=== PATIENT | male | born 1985 | race Caucasian/White ===

== ENCOUNTER 2020-12-02 15:39 | Outpatient (CLI) | payer BC, SELFPAY ==
[2020-12-02 16:19] LABS: Hematocrit 42.2 % (42.0-52.0); Hemoglobin 14.7 g/dL (14.0-18.0); Mean Corpuscular HGB Conc 34.8 g/dl (32-36); Mean Corpuscular Hemoglobin 33.3 pg (26-34); Mean Corpuscular Volume 95.5 fl (80-100); Mean Platelet Volume 10.1 fl (7.4-10.4); Platelet Count Result 252 k/mm3 (150-375); Red Blood Count 4.42 M/mm3 (4.6-6.20); White Blood Count 7.8 K/mm3 (4.5-10.0)
[2020-12-02 17:01] LABS: Alanine Aminotransferase 24 U/L (4-50); Albumin Level 4.4 g/dL (3.5-5.1); Alkaline Phosphatase 68 U/L (38-126); Anion Gap 6 mmol/L (8-16); Aspartate Amino Transferase 32 U/L (17-59); Bilirubin,Total 0.7 mg/dL (0.2-1.3); Blood Urea Nitrogen 13 mg/dL (9-20); Calcium 9.7 mg/dL (8.4-10.2); Carbon Dioxide 29 mmol/L (22-30); Chloride 102 mmol/L (98-107); Estimated Glomerular Filt Rate > 60; Glucose 92 mg/dL (75-110); Lipase 87 U/L (23-300); Potassium 4.2 mmol/L (3.4-5.0); Sodium 137 mmol/L (137-145)
== END 2020-12-02 15:40 | disposition home or self-care (01) ==
LOC: ANHLAB 15:42
PROVIDERS: PCP Family Medicine; Visit Provider Physician Assistant
DX: R10.9 Unspecified abdominal pain (principal)
CPT/HCPCS: 36415; 80053; 83690; 85027

== ENCOUNTER 2021-05-14 19:05 | Emergency (ER) | payer BC, SELFPAY ==
[2021-05-14 19:12] VITALS: BP 122/69; PULSE 89; RESP 16; TEMP 36.6; O2SAT 99
--- NOTE | 2021-05-14 19:17 | ED.SKABFB ---
HPI - Skin/Abscess/Foreign Bdy General Chief complaint: Skin/Abscess/Foreign Body Stated complaint: poison rae History of Present Illness HPI narrative: This is a 35 year old male that was out in [place] on [place] patient states that his symptoms did not start to get worse until this weekend Wednesday he really noticed it and he was been itching. Patient states that now spots are working the way up his body patient denies taking anything for his symptoms Related Data Allergies Allergy/AdvReac Type Severity Reaction Status Date / Time poison rae extract Allergy Unknown Swelling Verified 12/04/20 13:21 Review of Systems Review of Systems: Narrative: CONSTITUTIONAL: Denies fever, chills, or sweats. EYES: Denies visual changes, redness, or discharge. ENT: Denies rhinorrhea, congestion, sore throat, or otalgia. CARDIOVASCULAR:Denies chest pain, palpitations, or edema. RESPIRATORY: Denies cough or dyspnea. GASTROINTESTINAL: Denies abdominal pain, nausea, vomiting, or diarrhea. GENITOURINARY: Denies dysuria or hematuria. SKIN: Reports rash or itching. MUSCULOSKELETAL:Denies back pain, joint pain, or myalgia. NEUROLOGIC: Denies headache, numbness, or weakness. PSYCHIATRIC:Denies anxiety or depression Therapy [facility] Past Medical History Medical History (Updated 05/14/21 @ 19:18 by Rina Garcia NP) No active medical problems Surgical History Surgical History No significant past surgical history Family History Family History Other Adopted Social History Social History (Updated 12/04/20 @ 13:22 by Cathy Partida CMA) Smoking packs per day: 1 Smoking cigarettes per day: 20.0 Years smoked: 19 Smoking pack-years: 19.00 Smoking status: Current every day smoker Tobacco type: cigarettes Second hand tobacco smoke exposure: Yes Alcohol intake: current Drinks per week: 60 Alcohol use details: drinks beer Substance use: never 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 Please see nursing chart for further information. There is no relevant family history pertinent to the presenting complaint. Exam Narrative: Exam Narrative: GENERAL:Well-appearing, well-nourished, and in no acute distress. HEAD:Normocephalic, atraumatic. EYES: PERRLA and EOMI. ENT: Nares clear, no rhinorrhea or epistaxis. Mucous membranes moist. NECK: Supple. CHEST: Clear to auscultation. No respiratory distress. HEART: Regular rate and rhythm. No murmur heard. Normal peripheral pulses. ABDOMEN: Soft, nontender, nondistended, normal active bowel sounds. EXTREMITIES: Normal range of motion. No edema. SKIN: Warm, dry, no small pinpoint red erythema rash bilateral legs and some. NEURO: No focal deficits. Alert and oriented x3. Course Vital Signs Vital signs: Vital Signs Temperature 97.9 F 05/14/21 19:12 Pulse Rate 89 05/14/21 19:12 Respiratory Rate 16 05/14/21 19:12 Blood Pressure 122/69 05/14/21 19:12 Pulse Oximetry 99 05/14/21 19:12 Temperature 97.9 F 05/14/21 19:12 Pulse Rate 89 05/14/21 19:12 Respiratory Rate 16 05/14/21 19:12 Blood Pressure 122/69 05/14/21 19:12 Pulse Oximetry 99 05/14/21 19:12 MDM - Skin/Abscess/Foreign Bdy Differential Diagnosis Differential diagnosis: Likely abscess of skin or subcutaneous tissue, urticaria, eczema, insect bites, impetigo and contact dermatitis Discharge Plan Discharge Clinical Impression: Allergic contact dermatitis due to urushiol from poison sumac Patient Disposition: Home, Self-Care Condition: Stable Instructions: Antibiotic Form, Contact Dermatitis (DC), Poison Rae (ED) Additional Instructions: Use skin creams/lotion, such as those containing calamine or pramoxine to re
== END 2021-05-14 19:26 | disposition home or self-care (01) ==
PROVIDERS: Emergency Provider Nurse Practitioner Family; PCP Family Medicine
DX: L23.7 Allergic contact dermatitis due to plants, except food (principal); F17.210 Nicotine dependence, cigarettes, uncomplicated
CPT/HCPCS: 99213; G0463

== ENCOUNTER → 2021-11-05 09:00 | Outpatient (CLI) | payer BC, SELFPAY ==
[2021-11-05 13:46] LABS: SARS-CoV-2 RNA PCR Positive
[2021-11-05 15:20] LABS: Influenza A QL RT-PCR Negative (Negative); Influenza B QL RT-PCR Negative (Negative)
== END ==
PROVIDERS: PCP Family Medicine; Visit Provider Physician Assistant
DX: U07.1 COVID-19 (principal)
CPT/HCPCS: 87502; C9803; U0003; U0005

== ENCOUNTER 2021-11-12 01:00 | Emergency (ER) | payer BC, SELFPAY ==
[2021-11-12 01:09] VITALS: BP 126/84; PULSE 93; RESP 18; TEMP 36.2; O2SAT 97
--- NOTE | 2021-11-12 04:43 | PC.NURSE ---
Called to room, no answer.
--- NOTE | 2021-11-12 04:44 | PC.NURSE ---
Pt was seen leaving earlier per this RN and had not returned. Bathroom checked, foyer and area immediately out of doors checked and pt does not appear to have returned.
== END 2021-11-12 04:45 | disposition left against medical advice (07) ==
LOC: ANHED 05:36
PROVIDERS: PCP Family Medicine
DX: R50.9 Fever, unspecified (principal)
CPT/HCPCS: 99199

== ENCOUNTER 2021-11-18 12:24 | Outpatient (CLI) | payer BC, SELFPAY ==
--- NOTE | ~2021-11-18 | XR_ITS ---
EXAMINATION: XR chest 2V EXAM DATE: 11/18/2021 12:39 INDICATION: J22 - Unspecified acute lower respiratory infection. TECHNIQUE: Frontal and lateral projections of the chest obtained and reviewed. There is no prior agustin dy for comparison. FINDINGS: The lungs are clear. There are no pleural effusions. The cardiomediastinal silhouette is within normal limits. There is no pneumothorax suspected. The bones and soft tissues are unremarkab le. IMPRESSION: No acute cardiopulmonary findings. Reviewed, dictated and finalized at location A. RATORY IMMUNOLOGIST
== END 2021-11-18 12:25 ==
PROVIDERS: PCP Family Medicine; Visit Provider Physician Assistant
DX: J22 Unspecified acute lower respiratory infection (principal)
CPT/HCPCS: 71046

== ENCOUNTER 2022-02-15 08:03 | Emergency (ER) | payer BC, SELFPAY ==
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
[2022-02-15 08:13] VITALS: BP 131/78; PULSE 87; RESP 16; TEMP 36.6; O2SAT 100
[2022-02-15] MEDS: KETOROLAC (*BKC) 60 MG/2 ML VIAL IM (08:50)
== END 2022-02-15 08:55 | disposition home or self-care (01) ==
PROVIDERS: Emergency Provider Nurse Practitioner Family; PCP Family Medicine
DX: S20.212A Contusion of left front wall of thorax, initial encounter (principal); V86.05XA Driver of 3- or 4- wheeled all-terrain vehicle (ATV) injured in traffic accident, initial encounter; F17.210 Nicotine dependence, cigarettes, uncomplicated
CPT/HCPCS: 71101; 96372; 99213; G0463; J1885

== ENCOUNTER 2022-04-26 08:46 | Emergency (ER) | payer BC, SELFPAY ==
[2022-04-26 08:52] VITALS: BP 124/77; PULSE 76; RESP 16; TEMP 36.9; O2SAT 99
--- NOTE | 2022-04-26 08:58 | ED.SKABFB ---
HPI - Skin/Abscess/Foreign Bdy General Chief complaint: Skin/Abscess/Foreign Body Stated complaint: poison kvng Time Seen by Provider: 04/26/22 08:59 Source: patient, RN notes reviewed and old records reviewed Mode of arrival: ambulatory Limitations: no limitations History of Present Illness HPI narrative: 36-year-old male presents to the [facility] with rash to his bilateral arms, lower back, hands and genital area. Patient states he has had the rash for about 5 days started after he was pulling weeds. No treatment prior to arrival. Has been taking cool baths. MD complaint: rash Onset (ago): day(s) (5) Related Data Allergies Allergy/AdvReac Type Severity Reaction Status Date / Time poison kvng extract Allergy Unknown Swelling Verified 04/26/22 09:33 Review of Systems Review of Systems: All systems reviewed & are unremarkable except as noted in HPI and below Constitutional: Constitutional: Reports no additional constitutional complaints, Denies chills, Denies fever(s), Denies headache(s) and Denies weakness Eyes: Eyes: Reports no additional eye complaints and Denies change in vision ENT: Reports system reviewed and no additional complaints, except as documented, Denies dysphagia, Denies dizziness, Denies headache(s), Denies nasal congestion and Denies sore throat Cardiovascular: Cardiovascular: Reports no additional cardiovascular complaints, Denies chest pain, Denies syncope and Denies dyspnea Respiratory: Respiratory: Reports no additional respiratory complaints, Denies chest congestion, Denies cough, Denies dyspnea and Denies wheezing Gastrointestinal: Gastrointestinal: Reports no additional gastrointestinal complaints Musculoskeletal: Musculoskeletal: Reports no additional musculoskeletal complaints and Denies numbness Integumentary/Breasts: Skin/Breast: Reports as per HPI and Reports rash Neurologic: Reports system reviewed and no additional complaints, except as documented, Denies dizziness, Denies syncope, Denies headache(s), Denies focal weakness, Denies numbness and Denies weakness Psychiatric: Psychiatric: Reports no additional psychiatric complaints Allergic/Immunologic: Allergic/Immunologic: Reports no additional allergic/immunologic complaints and Denies wheezing PMFSH Past Medical History Medical History (Updated 04/26/22 @ 09:08 by Beatriz Benton APRN) No active medical problems Surgical History Surgical History No significant past surgical history Family History Family History Other Adopted Social History Social History Smoking packs per day: 1 Smoking cigarettes per day: 20.0 Years smoked: 19 Smoking pack-years: 19.00 Smoking status: Current every day smoker Tobacco type: cigarettes Second hand tobacco smoke exposure: Yes Alcohol intake: current Drinks per week: 60 Alcohol use details: drinks beer Substance use: never 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 There is no relevant family history pertinent to the patient complaint. Exam Const: General: healthy appearing, no acute distress and alert Nutritional Appearance: well nourished Orientation/consciousness: patient oriented x3 Limitations: no limitations HENMT: Head: normal to inspection Ears: external ears normal Eyes: Pupils: Equal, round and reactive pupils present Neck: Neck: normal visual inspection, no lymphadenopathy and no meningeal signs Chest: Chest palpation & inspection: normal inspection of the chest Resp: Effort & Inspection: normal respiratory effort Auscultation: clear to auscultation bilaterally Cardio: Rate: regular rate Rhythm: regular rhythm : General: Yes no CVA tenderness
== END 2022-04-26 09:18 | disposition home or self-care (01) ==
PROVIDERS: Emergency Provider Nurse Practitioner; PCP Family Medicine
DX: L23.7 Allergic contact dermatitis due to plants, except food (principal); F17.210 Nicotine dependence, cigarettes, uncomplicated
CPT/HCPCS: 99213; G0463

== ENCOUNTER 2023-02-02 19:15 | Emergency (ER) | payer BC, SELFPAY ==
--- NOTE | ~2023-02-02 | XR_ITS ---
EXAMINATION: XR chest 2V Exam Date/Time: 02/02/2023 19:46 CDT HISTORY: cough short of breath x 4 days smoker Comparison: 11/18/2021. RESULT: Lines, tubes, and devices: None. Lungs and pleura: Clear. Cardiomediastinal silhouette: Stable. Other: No acute osseous or upper abdominal finding. IMPRESSION: No acute cardiopulmonary process. Reviewed, dictated and finalized at location K.
[2023-02-02 19:32] VITALS: BP 126/72; PULSE 79; RESP 16; TEMP 36.7; O2SAT 100
--- NOTE | 2023-02-02 19:44 | ED.GENADULT ---
HPI - General Adult General Chief complaint: Upper Respiratory Infection Stated complaint: SOB/Cough/Wheezing Source: patient Mode of arrival: ambulatory Limitations: no limitations History of Present Illness HPI narrative: Patient presents for evaluation of respiratory symptoms. He indicates symptoms started 4 days ago. He now has a nonproductive cough and shortness of breath. He smokes approximately 1 pack per day but has had difficulty smoking secondary to his symptoms. He denies any fever, chills, nausea, vomiting. no recent sick contacts to his knowledge. No formal diagnosis of COVID in the past. Related Data Home Medications Medication Instructions Recorded Confirmed albuterol sulfate 90 mcg/actuation 1 inh inhalation Q4-6H PRN 11/09/22 02/02/23 breath activated powder inhaler Shortness Of Breath Allergies Allergy/AdvReac Type Severity Reaction Status Date / Time poison kvng extract Allergy Unknown Swelling Verified 02/02/23 19:30 Review of Systems Review of Systems: CONSTITUTIONAL: Denies fever, chills, or sweats. EYES: Denies visual changes, redness, or discharge. ENT: Denies rhinorrhea, congestion, sore throat, or otalgia. CARDIOVASCULAR: Denies chest pain, palpitations, or edema. RESPIRATORY: Reports cough and shortness of breath GASTROINTESTINAL: Denies abdominal pain, nausea, vomiting, or diarrhea. GENITOURINARY: Denies dysuria or hematuria. SKIN: Denies rash or itching. MUSCULOSKELETAL: Denies back pain, joint pain, or myalgia. NEUROLOGIC: Denies headache, numbness, dizziness, or weakness. PSYCHIATRIC: Denies anxiety or depression. [facility] Past Medical History Medical History (Updated 02/02/23 @ 20:08 by Cornell Arias, MADDY, ) No active medical problems Surgical History Surgical History No significant past surgical history Family History Family History Other Adopted Social History Social History Smoking packs per day: 1 Smoking cigarettes per day: 20.0 Years smoked: 19 Smoking pack-years: 19.00 Smoking status: Current every day smoker Tobacco type: cigarettes Second hand tobacco smoke exposure: Yes Alcohol intake: current Drinks per week: 60 Alcohol use details: drinks beer Substance use: never Substance use type: does not use Lack of Transportation: No Lack of Food: Never True Current Housing: I Have Housing Concerned About Future Housing: No Difficulty Paying Gas/Electric Bills: No Difficulty Paying for Meds: No Currently Unemployed: No Education: High School Diploma/GED Difficulty w/ Childcare or Family Care: No Occupation/Education: occupation 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 HEAD: Normocephalic, atraumatic. EYES: PERRLA and EOMI. ENT: Nares clear, no rhinorrhea or epistaxis. Mucous membranes moist. Oropharynx without tonsillar hypertrophy exudate or other lesions. Bilateral TMs pearly sanchez nonbulging NECK: Supple. No adenopathy or masses. No carotid bruits or JVD CHEST: Clear to auscultation. No respiratory distress. No wheezes rales or rhonchi HEART: Regular rate and rhythm. No murmur heard. Normal peripheral pulses. ABDOMEN: Soft, nontender, nondistended, normal active bowel sounds. EXTREMITIES: Normal range of motion. No edema. SKIN: Warm, dry, no rash. NEURO: No focal deficits. Alert and oriented x3. PSYCH: Normal mood and affect. Course Course Emergency Course: This is a 37-year-old male who presented for evaluation of respiratory symptoms. COVID, influenza and chest x-ray were all negative. Will discharge with prednisone and Mucinex DM. Advised on smoking cessation. Increase hydration. [id number] agents for symptom
== END 2023-02-02 20:34 | disposition home or self-care (01) ==
PROVIDERS: Emergency Provider Nurse Practitioner; PCP Family Medicine
DX: B34.9 Viral infection, unspecified (principal); Z20.822 Contact with and (suspected) exposure to COVID-19; F17.210 Nicotine dependence, cigarettes, uncomplicated
CPT/HCPCS: 71046; 87426; 87804; 99213; C9803; G0463

== ENCOUNTER 2025-03-24 09:03 | Emergency (ER) | payer BC, SELFPAY ==
[2025-03-24 09:14] VITALS: BP 121/78; PULSE 92; RESP 18; TEMP 36.8; O2SAT 99
--- NOTE | 2025-03-24 09:21 | ED.WOUNDLAC ---
HPI - Wound/Laceration General Chief Complaint: Wound/Laceration Stated Complaint: cut on left thumb Time Seen by Provider: 03/24/25 09:04 Source: patient Mode of arrival: ambulatory Limitations: no limitations History of Present Illness HPI narrative: 39-year-old male presents to [facility] complaints of pain and laceration to his left thumb since last night. Patient reports that he was working on his tractor using a razor blade when the razor blade slipped and cut his left thumb. patient reports that his game attendant neighbor cleansed the wound with peroxide and water and applied Neosporin and Band-Aid. Patient is unsure of his last tetanus shot. Patient denies Bleeding, numbness, tingling, fever, body aches, chills, nausea, vomiting or diarrhea. Onset (ago): hour(s) (12) Location: other (left thumb ) Place: home Patient tetanus UTD: No Context: accidental Associated symptoms: pain Treatments prior to arrival: bandage Related Data Home Medications ?Medication ?Instructions ?Recorded ?Confirmed ?Last Taken ?Type albuterol sulfate 90 mcg/actuation 1 inh inhalation Q4-6H PRN 11/09/22 04/06/24 Unknown History breath activated powder inhaler Shortness Of Breath Allergies Allergy/AdvReac Type Severity Reaction Status Date / Time poison kvng extract Allergy Unknown Swelling Verified 03/24/25 09:11 Review of Systems Constitutional: Constitutional: Denies chills, Denies fatigue and Denies fever(s) ENT: Denies vertigo, Denies dizziness and Denies epistaxis Cardiovascular: Cardiovascular: Denies chest pain Respiratory: Respiratory: Denies cough, Denies dyspnea and Denies wheezing Integumentary/Breasts: Comments: laceration to left thumb Neurologic: Denies vertigo, Denies dizziness, Denies syncope and Denies headache(s) [facility] Past Medical History Medical History (Updated 03/24/25 @ 09:40 by Tonya Dillard APRN) No active medical problems Surgical History Surgical History No significant past surgical history Family History Family History Other Adopted Social History Social History Smoking packs per day: 1 Smoking cigarettes per day: 20.0 Years smoked: 19 Smoking pack-years: 19.00 Smoking status: Current every day smoker Tobacco type: cigarettes Second hand tobacco smoke exposure: Yes Alcohol intake: current Drinks per week: 60 Alcohol use details: drinks beer Substance use: never Substance use type: does not use Lack of Transportation: No Lack of Food: Never True Current Housing: I Have Housing Concerned About Future Housing: No Difficulty Paying Gas/Electric Bills: No Difficulty Paying for Meds: No Currently Unemployed: No Education: High School Diploma/GED Difficulty w/ Childcare or Family Care: No Occupation/Education: occupation 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 There is no relevant family history pertinent to the presenting complaint. Exam Const: General: healthy appearing, no acute distress and alert Nutritional Appearance: well nourished Orientation/consciousness: patient oriented x3 Limitations: no limitations HENMT: Head: normal to inspection Eyes: Conjunctivae: conjunctivae normal Neck: Neck: normal visual inspection Resp: Effort & Inspection: normal respiratory effort and not labored Auscultation: clear to auscultation bilaterally, no crackles, no rales, no rhonchi and no wheezes Cardio: Rate: regular rate Rhythm: regular rhythm Heart sounds: no murmurs Skin: General skin exam: normal color Rashes: no rashes Wounds: wounds noted Other: 2cm superficial laceration noted to left thumb; there is no bleeding, swelling, bruising or drainage was noted. Full ROM noted; mild pain noted with ROM. Pulses are WNL Neuro: General: patient oriented x3 and moves all extremities Speech: normal speech Gait exam (Neuro): Normal gait present Extrem: Other: see skin assessment; laceration noted to left thumb Psych: Mental Status: mental status grossly normal Affect: normal affect Attitude: cooperative Course Course Level of Care: Express Care Visit Vital Signs Vital signs: Vital Signs Temperature 36.8 C 03/24/25 09:14 Pulse Rate 92 03/24/25 09:14 Respiratory Rate 18 03/24/25 09:14 Blood Pressure 121/78 03/24/25 09:14 Pulse Oximetry 99 03/24/25 09:14 Oxygen Delivery Room Air 03/24/25 09:14 Temperature 36.8 C 03/24/25 09:14 Pulse Rate 92 03/24/25 09:14 Respiratory Rate 18 03/24/25 09:14 Blood Pressure 121/78 03/24/25 09:14 Pulse Oximetry 99 03/24/25 09:14 Oxygen Delivery Room Air 03/24/25 09:14 Procedures Laceration Laceration 1: Date: 03/24/25 Time: 09:29 Site: other (left thumb) Side (If applicable): left Size (cm): 2 Description: linear and other (very superficial ) Pre-repair: other (wound cleansed with normal saline and wound cleanser ) ====== Skin Level ====== Skin layer closed with: dermabond, steri strips (X2) and other (dressing and finger splint ) ====== Subcutaneous Layer ====== ====== Muscle Layer ====== ====== Tendon Layer ====== MDM - Wound/Laceration MDM Narrative Medical decision making narrative: Wound care discussed with pt; pt agrees to allow steri strips and Dermabond to fall off on its own. Will place pt on antibiotic due to razor blade being dirty that pt accidentally cut himself with. Tdap updated today. pt agrees to monitor wound closely and advised pt to go to the ER If signs/symptoms of infection or worsening symptoms. Differential Diagnosis Differential diagnosis: Likely abrasion and avulsion of skin Critical Care Time Critical Care Time Critical Care Time: No Discharge Plan Discharge Clinical Impression: Laceration Patient Disposition: Home Condition: Improved Instructions: Antibiotic Form, Laceration (ED) Additional Instructions: allow Steri-Strips and Dermabond to follow-up on its own take antibiotic as prescribed Alternate Motrin and Tylenol as needed for pain Keep finger splint in place as needed proceed to the emergency room if symptoms worsen Patient Language: Vietnamese Prescriptions: New cephalexin 500 mg capsule 500 mg PO Q12H 10 Days Qty: 20 0RF No Action albuterol sulfate 90 mcg/actuation aerosol powdr breath activated 1 inh inhalation Q4-6H PRN (Reason: Shortness Of Breath) Follow-up/Referrals: Suzan Telles MD [Primary Care Provider] - Time of Disposition: 09:40
[2025-03-24] MEDS: TETANUS,DIPHTHERIA,AC PERTUSSIS ADULT (0.5 ML) BOOSTRIX IM (09:29)
== END 2025-03-24 09:54 | disposition home or self-care (01) ==
PROVIDERS: Emergency Provider Nurse Practitioner Family; PCP Family Medicine
DX: S61.012A Laceration without foreign body of left thumb without damage to nail, initial encounter (principal); F17.210 Nicotine dependence, cigarettes, uncomplicated; W27.8XXA Contact with other nonpowered hand tool, initial encounter; Z23 Encounter for immunization
CPT/HCPCS: 12001; 90471; 90715; 99213; G0463

== ENCOUNTER 2025-07-14 08:42 | Emergency (ER) | payer OTHER, SELFPAY ==
--- NOTE | 2025-07-14 08:47 | ED.GENADULT ---
HPI - General Adult General Chief complaint: Skin/Abscess/Foreign Body Stated complaint: lump on foot Time Seen by Provider: 07/14/25 08:48 Source: patient Mode of arrival: ambulatory Limitations: no limitations History of Present Illness HPI narrative: 39-year-old male patient presents to the [facility] with complaints of a lump on his left foot under the 4th toe. Patient states that this lump comes and goes for few years now and recently has had this for couple of weeks but states it is tender when pressure is applied and does have issues when he is walking or in his work boots. Related Data Allergies Allergy/AdvReac Type Severity Reaction Status Date / Time poison kvng extract Allergy Unknown Swelling Verified 07/14/25 08:53 Review of Systems Review of Systems: CONSTITUTIONAL: Denies fever, chills, or sweats. EYES: Denies visual changes, redness, or discharge. ENT: Denies rhinorrhea, congestion, sore throat, or otalgia. CARDIOVASCULAR: Denies chest pain, palpitations, or edema. RESPIRATORY: Denies cough or dyspnea. GASTROINTESTINAL: Denies abdominal pain, nausea, vomiting, or diarrhea. GENITOURINARY: Denies dysuria or hematuria. SKIN: Denies rash or itching. Positive lump to the left foot under the 4th toe MUSCULOSKELETAL: Denies back pain, joint pain, or myalgia. NEUROLOGIC: Denies headache, numbness, or weakness. PSYCHIATRIC: Denies anxiety or depression. [facility] Past Medical History Medical History (Updated 07/14/25 @ 09:11 by MADDY Pinedo) Anxiety Depression No active medical problems Surgical History Surgical History No significant past surgical history Family History Family History Other Adopted Social History Social History Smoking packs per day: 1 Smoking cigarettes per day: 20.0 Years smoked: 19 Smoking pack-years: 19.00 Smoking status: Current every day smoker Tobacco type: cigarettes Second hand tobacco smoke exposure: Yes Alcohol intake: current Drinks per week: 60 Alcohol use details: drinks beer Substance use: never Substance use type: does not use Lack of Transportation: No Lack of Food: Never True Current Housing: I Have Housing Concerned About Future Housing: No Difficulty Paying Gas/Electric Bills: No Difficulty Paying for Meds: No Currently Unemployed: No Education: High School Diploma/GED Difficulty w/ Childcare or Family Care: No Occupation/Education: occupation Additional occupation/education comments: [employer] Comments At the time of my signature I agree with nursing past medical history, surgical, social, and family history. There is no relevant family history pertinent to the presenting complaint. 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 HEAD: Normocephalic, atraumatic. EYES: PERRLA and EOMI. ENT: Nares clear, no rhinorrhea or epistaxis. Mucous membranes moist. NECK: Supple. No lymphadenopathy CHEST: Clear to auscultation. No respiratory distress. HEART: Regular rate and rhythm. No murmur heard. Normal peripheral pulses. ABDOMEN: Soft, nontender, nondistended, normal active bowel sounds. EXTREMITIES: Normal range of motion. No edema. SKIN: Warm, dry, no rash. Patient has plantar wart noted to the left foot under the 4th toe. There is no evidence of infection no redness, no discharge noted. NEURO: No focal deficits. Alert and oriented x3. Course Course Level of Care: Express Care Visit Vital Signs Vital signs: Vital Signs Temperature 36.3 C L 07/14/25 08:50 Pulse Rate 73 07/14/25 08:50 Respiratory Rate 20 07/14/25 08:50 Blood Pressure 110/76 07/14/25 08:50 Pulse Oximetry 99 07/14/25 08:50 Oxygen Delivery Room Air 07/14/25 08:50 Temperature 36.3 C L 07/14/25 08:50 Pulse Rate 73 07/14/25 08:50 Respiratory Rate 20 07/14/25 08:50 Blood Pressure 110/76 07/14/25 08:50 Pulse Oximetry 99 07/14/25 08:50 Oxygen Delivery Room Air 07/14/25 08:50 Vital signs reviewed. Medical Decision Making MDM Narrative Medical decision making narrative: Plan of care for patient to discharge home and encourage [id number] plantar wart Band-Aids, plantar wart acid and may also want to try some duct tape therapy. Discussed with patient about all of these therapies however discussed with him that this is caused by a virus and can return and usually will take several weeks to a couple of months to go away completely. Encouraged patient to also pad the area with a padded Band-Aid to help decrease the pressure when walking or when he is in his work boots. Patient verbalized understanding denies any other questions or concerns at this time. Differential Diagnosis Differential Diagnosis: Differential diagnosis: Foot fracture, crush injury, compartment syndrome, contusion, sprain, tendinitis,lisfranc sprain or fracture, avulsion fracture, grown toenail, diabetic ulcer. Vital Signs Vital Signs: Vital Signs Temperature 36.3 C L 07/14/25 08:50 Pulse Rate 73 07/14/25 08:50 Respiratory Rate 20 07/14/25 08:50 Blood Pressure 110/76 07/14/25 08:50 Pulse Oximetry 99 07/14/25 08:50 Oxygen Delivery Room Air 07/14/25 08:50 Temperature 36.3 C L 07/14/25 08:50 Pulse Rate 73 07/14/25 08:50 Respiratory Rate 20 07/14/25 08:50 Blood Pressure 110/76 07/14/25 08:50 Pulse Oximetry 99 07/14/25 08:50 Oxygen Delivery Room Air 07/14/25 08:50 Critical Care Time Critical Care Time Critical Care Time: No Discharge Plan Discharge Clinical Impression: Plantar wart of left foot Patient Disposition: Home Condition: Stable Instructions: Antibiotic Form Additional Instructions: A plantar wart is a harmless skin growth. Plantar warts occur on the bottom of your feet and may be painful when you walk. A virus makes the top layer of skin grow quickly, causing a wart. Warts usually go away on their own in months or years. Warts are spread easily. You can infect yourself again by touching the wart and then touching another part of your body. You also can infect others by sharing towels, razors, or other personal items. Most plantar warts do not need treatment. But if warts cause you pain or spread, your doctor may recommend that you use an mqyx-vme-cnweedj treatment. These include salicylic acid, duct tape, and freezing sprays. Your doctor may prescribe a stronger medicine to put on warts or may inject them with medicine. Your doctor also can remove warts through surgery or by freezing them. Follow-up care is a hester part of your treatment and safety.?Be sure to make and go to all appointments, and call your doctor or nurse advice line ([phone]?in most [place] and [facility]) if you are having problems. It's also a good idea to know your test results and keep a list of the medicines you take. How can you care for yourself at home? Use salicylic acid or duct tape as your doctor directs. You put the medicine or the tape on a wart for a while and then file down the skin on the wart. You use the salicylic acid treatment for 2 to 3 months or the tape for 1 to 2 months.If your doctor prescribes medicine to put on warts, use it exactly as prescribed. Call your doctor or nurse advice line if you think you are having a problem with your medicine.Wear comfortable shoes and socks. Avoid high heels or shoes that put a lot of pressure on your foot.Pad the wart with doughnut-shaped felt or a moleskin patch. You can buy these at a [employer]. Put the pad around the plantar wart so that it relieves pressure on the wart. You also can place pads or cushions in your shoes to make walking more comfortable.Take an vwab-bbr-boinmkh medicine, such as acetaminophen (Tylenol), ibuprofen (Advil, Motrin), or naproxen (Aleve) if you have pain. Read and follow all instructions on the label.Do not take two or more pain medicines at the same time unless the doctor told you to. Many pain medicines have acetaminophen, which is Tylenol. Too much acetaminophen (Tylenol) can be harmful. When should you call for help? Call your doctor or nurse advice line now?or seek immediate medical care if: You have signs of infection, such as: Increased pain, swelling, warmth, or redness. Red streaks leading from a wart. Pus draining from a wart. A fever. Patient Language: Yoruba Follow-up/Referrals: Suzan Telles MD [Primary Care Provider, Family Practice] Time of Disposition: 09:11
[2025-07-14 08:50] VITALS: BP 110/76; PULSE 73; RESP 20; TEMP 36.3; O2SAT 99
== END 2025-07-14 09:14 | disposition home or self-care (01) ==
PROVIDERS: Emergency Provider Nurse Practitioner Family; PCP Family Medicine
DX: B07.0 Plantar wart (principal); F17.210 Nicotine dependence, cigarettes, uncomplicated
CPT/HCPCS: 99211; G0463